=== PATIENT | female | born 1970 | race Caucasian/White ===

== ENCOUNTER 2017-12-14 18:04 | Emergency (ER) | payer BC ==
[2017-12-14] MEDS: LORazepam 0.5 MG Tab PO ONE (18:34)
--- NOTE | 2017-12-14 18:35 | EDM.PDOC ---
ED HPI GENERAL MEDICAL PROBLEM - General Chief Complaint: Chest Pain Stated Complaint: CHEST PAIN Time Seen by Provider: 12/14/17 18:16 Source of Information: Reports: Patient History Limitations: Reports: No Limitations - History of Present Illness INITIAL COMMENTS - FREE TEXT/NARRATIVE: PATIENT IS A 47-YEAR-OLD FEMALE WHO PRESENTS TO THE EMERGENCY DEPARTMENT THIS AFTERNOON WITH A COMPLAINT OF CHEST PAIN. PATIENT STATES THAT PAIN IS INTERMITTENT, LASTS A FEW SECONDS HAS HAPPENED DAILY FOR THE LAST WEEK AND RESOLVES SPONTANEOUSLY. HAS OCCURRED AT REST AND PATIENT STATES ALSO HAS A WARM SENSATION IN THE BACK OF HER NECK INTO HER HEAD. SHE BECOMES ANXIOUS, BUT THEN SYMPTOMS RESOLVED. SHE DENIES HEADACHE, FEVER, SHORTNESS OF BREATH, NAUSEA , VOMITING, DIARRHEA, OUT OF COUNTRY TRAVEL, EARLY FAMILY CARDIAC HISTORY, OR SIMILAR SYMPTOMS IN THE PAST. Onset: Gradual Duration: Intermittent Location: Reports: Chest Quality: Reports: Pressure Severity: Mild Improves with: Reports: Other (SPONTANEOUSLY) Worsens with: Reports: None Associated Symptoms: Reports: Chest Pain - Related Data Allergies Allergy/AdvReac Type Severity Reaction Status Date / Time No Known Drug Allergies Allergy Cannot Verified 12/14/17 18:12 Remember Home Meds: Home Meds . 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: Psychiatric History: Reports: Depression Endocrine/Metabolic History: Reports: Obesity/BMI 30+ - Infectious Disease History Infectious Disease History: Reports: Chicken Pox - Past Surgical History HEENT Surgical History: Reports: Naso-Sinus Surgery, Tonsillectomy GI Surgical History: Reports: Appendectomy Social & Family History - Tobacco Use Smoking Status *Q: Never Smoker - Caffeine Use Caffeine Use: Reports: Soda Other Caffeine Use: regular - Recreational Drug Use Recreational Drug Use: No ED ROS GENERAL - Review of Systems Review Of Systems: ROS reveals no pertinent complaints other than HPI. Constitutional: Reports: No Symptoms HEENT: Reports: No Symptoms Respiratory: Reports: No Symptoms Cardiovascular: Reports: Chest Pain Endocrine: Reports: No Symptoms GI/Abdominal: Reports: No Symptoms : Reports: No Symptoms Musculoskeletal: Reports: No Symptoms Skin: Reports: No Symptoms Neurological: Reports: No Symptoms Psychiatric: Reports: No Symptoms Hematologic/Lymphatic: Reports: No Symptoms Immunologic: Reports: No Symptoms ED EXAM, GENERAL - Physical Exam Exam: See Below Exam Limited By: No Limitations General Appearance: Alert, WD/WN, No Apparent Distress Eye Exam: Bilateral Eye: Normal Inspection Nose: Normal Inspection, Normal Mucosa, No Blood Throat/Mouth: Normal Inspection, Normal Oropharynx, No Airway Compromise Head: Atraumatic, Normocephalic Neck: Normal Inspection, Supple, Non-Tender Respiratory/Chest: No Respiratory Distress, Lungs Clear, Normal Breath Sounds, No Accessory Muscle Use, Chest Non-Tender Cardiovascular: Normal Peripheral Pulses, Regular Rate, Rhythm, No Murmur GI/Abdominal: Normal Bowel Sounds, Soft, Non-Tender, No Organomegaly, No Distention, No Abnormal Bruit, No Mass Back Exam: Normal Inspection. No: CVA Tenderness (L), CVA Tenderness (R) Extremities: Normal Inspection, No Pedal Edema Neurological: Alert, Oriented, Normal Cognition Psychiatric: Anxious, Tearful Skin Exam: Warm, Dry, Intact, Normal Color, No Rash Lymphatic: No Adenopathy EKG INTERPRETATION EKG Date: 12/14/17 Time: 18:25 Rhythm: NSR Rate (Beats/Min): 80 Paul: Normal P-Wave: Present QRS: Normal ST-T: Normal QT: Normal Comparison: NA - No Prior EKG Course - Vital Signs Last Recorded V/S: Last Vital Signs Temp 98.9 F 12/14/17 18:08 Pulse 90 12/14/17 18:08 Resp 18 12/14/17 18:08 BP 146/91 H 12/14/17 18:08 Pulse Ox 100 12/14/17 18:08 - Orders/Labs/Meds Orders: Active Orders 24 hr Category Date Time Status EKG Documentation Completion [RC] ASDIRECTED Care 12/14/17 18:28 Ordered Chest 1V Frontal [CR] Stat Exams 12/14/17 18:27 Ordered CBC WITH AUTO DIFF [HEME] Stat Lab 12/14/17 18:27 Ordered COMPREHENSIVE METABOLIC PN,CMP [CHEM] Stat Lab 12/14/17 18:27 Ordered INR,PT,PROTHROMBIN TIME [COAG] Stat Lab 12/14/17 18:27 Ordered LIPASE [CHEM] Stat Lab 12/14/17 18:27 Ordered PTT,PARTIAL THROMBOPLSTIN TIME [COAG] Stat Lab 12/14/17 18:27 Ordered LORazepam [Ativan] Med 12/14/17 18:29 Once 0.5 mg PO ONETIME ONE EKG 12 Lead [EK] Routine Ther 12/14/17 18:27 Ordered - Radiology Interpretation Free Text/Narrative:: Chest X-ray shows no acute cardiopulmonary process - Re-Assessments/Exams Free Text/Narrative Re-Assessment/Exam: 12/14/17 19:58 Patient afebrile, nontoxic appearing, vital signs stable, no chest pain while in the emergency department. Secondary to a mildly elevated d-dimer of 486. CAT scan of chest with IV contrast was ordered. However, special effects technician advise me that the CAT scan was inoperable at this time and should be serviced in the morning. I discussed with the patient the possibility of a transfer to [place] for further evaluation of CAT scan and she declined. Patient will be discharged home and return to the emergency department tomorrow morning for repeat d-dimer and possible CAT scan chest with IV contrast. Patient will return to the ER sooner if symptoms continue or worsen. Departure - Departure Time of Disposition: 20:00 Disposition: Home, Self-Care 01 Condition: Good Clinical Impression: Atypical chest pain, Anxiety, Elevated d-dimer Instructions: Nonspecific Chest Pain, [id number], Panic Attacks, [id number] Referrals: Dharmesh Guan, TRANSFORMATION ARCHITECT [Nurse Practitioner] - Additional Instructions: Follow-up at [facility] in a.m. If unable to be seen. Return to the emergency department for repeat labs. Return to [facility] sooner if symptoms continue or worsen - My Orders Last 24 Hours: My Active Orders 12/14/17 18:27 Chest 1V Frontal [CR] Stat CBC WITH AUTO DIFF [HEME] Stat COMPREHENSIVE METABOLIC PN,CMP [CHEM] Stat INR,PT,PROTHROMBIN TIME [COAG] Stat LIPASE [CHEM] Stat PTT,PARTIAL THROMBOPLSTIN TIME [COAG] Stat EKG 12 Lead [EK] Routine 12/14/17 18:28 EKG Documentation Completion [RC] ASDIRECTED 12/14/17 18:29 LORazepam [Ativan] 0.5 mg PO ONETIME ONE - Assessment/Plan Last 24 Hours: My Active Orders 12/14/17 18:27 Chest 1V Frontal [CR] Stat CBC WITH AUTO DIFF [HEME] Stat COMPREHENSIVE METABOLIC PN,CMP [CHEM] Stat INR,PT,PROTHROMBIN TIME [COAG] Stat LIPASE [CHEM] Stat PTT,PARTIAL THROMBOPLSTIN TIME [COAG] Stat EKG 12 Lead [EK] Routine 12/14/17 18:28 EKG Documentation Completion [RC] ASDIRECTED 12/14/17 18:29 LORazepam [Ativan] 0.5 mg PO ONETIME ONE Assessment:: Atypical chest pain Plan: Return to emergency room in the morning.
[2017-12-14] MEDS ORDERED: Sodium Chloride 0.9% 5 ML Syringe FLUSH PRN (19:04)
== END 2017-12-14 20:15 | disposition home or self-care (01) ==
LOC: KA.ED 18:04
DX: R07.89 Other chest pain (principal); F41.9 Anxiety disorder, unspecified; R79.1 Abnormal coagulation profile; F32.9 Major depressive disorder, single episode, unspecified; E66.9 Obesity, unspecified; Z68.34 Body mass index [BMI] 34.0-34.9, adult
CPT/HCPCS: 36415; 71045; 80053; 83690; 84484; 85025; 85379; 85610; 85730; 93005; 99285; A9270-GY